=== PATIENT | female | born 1930 | race Two or more races ===

== ENCOUNTER 2020-03-16 14:00 | Outpatient (CLI) | payer SELFPAY | END 2020-03-16 23:59 | disposition home or self-care (01) | LOC: WOU 14:00 | PROVIDERS: ATTEND Surgery | DX: L89.223 Pressure ulcer of left hip, stage 3 (principal); G30.9 Alzheimer's disease, unspecified; F02.80 Dementia in other diseases classified elsewhere, unspecified severity, without behavioral disturbance, psychotic disturbance, mood disturbance, and anxiety | CPT/HCPCS: 11042 ==